=== PATIENT | female | born 1975 | race Caucasian/White ===

== ENCOUNTER 2016-09-18 11:20 | Emergency (ER) | payer OTHER ==
[~2016-09-18] VITALS: Ht 170.2 cm; Wt 99.8 kg
--- NOTE | ~2016-09-18 | CR63 ---
[facility] A Service of [facility] RADIOLOGY TEXT RESULTS PATIENT: JACKY CALVERT LOCATION: CFTX : 71 UNIT #: [id number] AGE: [address]: Jacky Hawthorne APRN SEX: F ORDER DR: [id number] [facility] [address] [facility] [address] [place], [place] [address] [id number] E MR#: [id number] Acc #: [id number] NAME: JACKY CALVERT : 1975 SEX: F STUDY DATE/TIME: 09/18/2016 11:51 UNIT: [facility] ROOM: STUDY DESCRIPTION: CR Chest 2 View Attending Physician: Jacky Hawthorne A.P.R.N. Ordering Physician: Ed Julius Ornelas M.D. Primary Care Physician: No Primary Care Physician MEDICAL IMAGING REPORT This report is preliminary unless electronic signature is present EXAM Chest, 09/18/2016, [facility]. HISTORY 41-year-old woman cough, short of air past 2 days. 30-year smoking history. COMPARISON None FINDINGS PA and lateral chest views show normal cardiac size and configuration. Hilar structures and mediastinal contours are preserved. Lungs are expanded and clear. Costophrenic angles are clear. IMPRESSION Negative chest. No acute chest finding. Dictated by... Anish Hollins M.D. THIS IS AN ELECTRONICALLY VERIFIED REPORT Anish Hollins M.D. at 09/18/2016 3:56 PM MONSERRAT/gardenia TD: 09/18/2016 14:57 JOB #: [id number] MEDICAL IMAGING REPORT Page 1 of 1 COPY
== END 2016-09-18 12:54 | disposition home or self-care (01) ==
LOC: CED 11:20 → CFTX 11:47
DX: J20.9 Acute bronchitis, unspecified (principal); F17.210 Nicotine dependence, cigarettes, uncomplicated; Z98.51 Tubal ligation status; Z88.8 Allergy status to other drugs, medicaments and biological substances
CPT/HCPCS: 71020; 94640; 99283

== ENCOUNTER 2016-09-24 12:49 | Emergency (ER) | payer OTHER ==
[~2016-09-24] VITALS: Ht 170.2 cm; Wt 99.8 kg
--- NOTE | ~2016-09-24 | CR63 ---
[facility] A Service of [facility] RADIOLOGY TEXT RESULTS PATIENT: NELL CALVERT LOCATION: CFTX : 71 UNIT #: [id number] AGE: [address]: Nell Hawthorne QUALITY WORKER SEX: F ORDER DR: [id number] [facility] [address] [place], [place] [address] [id number] E MR#: [id number] Acc #: [id number] NAME: NELL CALVERT : 1975 SEX: F STUDY DATE/TIME: 09/24/2016 15:07 UNIT: [place] ROOM: STUDY DESCRIPTION: CR Chest 2 View Attending Physician: Nell Hawthorne A.P.R.N. Ordering Physician: Ed Doctor [id number] [facility] Primary Care Physician: Primary Care Physician No MEDICAL IMAGING REPORT This report is preliminary unless electronic signature is present EXAM PA and lateral chest, 09/24/2016 HISTORY Cough, congestion and wheezing over the past [id number] days. Greater than 30-year smoking history. COMPARISON PA lateral chest radiograph, 09/18/2016 FINDINGS PA and lateral examination of the chest upright shows a good expansion of the parenchyma with a normal distribution of the pulmonary vascularity. There is no indication of congestion, effusion, infiltrate, tumor, or nodular density. The pleural reflections and diaphragmatic contours are normal. The cardiac silhouette and mediastinal anatomy is within normal limits. IMPRESSION Normal chest. Dictated by... Eri Spring M.D. THIS IS AN ELECTRONICALLY VERIFIED REPORT Eri Spring M.D. at 09/25/2016 9:54 AM Abi TD: 09/24/2016 17:08 JOB #: [id number] MEDICAL IMAGING REPORT Page 1 of 1 COPY
== END 2016-09-24 15:40 | disposition home or self-care (01) ==
LOC: CFTX 12:49 → CED 12:49 → CFTX 14:44
DX: J20.9 Acute bronchitis, unspecified (principal); F17.210 Nicotine dependence, cigarettes, uncomplicated; Z88.8 Allergy status to other drugs, medicaments and biological substances
CPT/HCPCS: 71020; 94640; 96372; 99284; J1885